=== PATIENT | female | born 1990 | race Caucasian/White ===

== ENCOUNTER 2016-07-01 07:52 | Emergency (ER) | payer OTHER ==
[~2016-07-01] VITALS: Ht 165.1 cm; Wt 113.5 kg
[~2016-07-01 07:52] MED LIST: AMIT25TA9 PO; CARB200 PO; CYCL1TAB29 PO; IBUP800T23 PO; OMEP40CA2 PO
[2016-07-01 07:55] VITALS: BP 120/86; PULSE 110; RESP 18; TEMP 97.6; O2SAT 97
[2016-07-01] MEDS ORDERED: NORC5TAB PO (08:01)
[2016-07-01] MEDS ORDERED: TEGR200T PO (08:01)
[2016-07-01] MEDS ORDERED: BACL10TA PO (08:01)
--- NOTE | 2016-07-01 08:30 | PD ---
HPI Chief Complaint: Injury Time Seen by Provider: 08:30 Travel History International Travel<30 days: No Contact w/Intl Traveler<30days: No Traveled to known affect area: No PFSH Past Medical History Bipolar Disorder: Yes Anxiety: Yes Depression: Yes Cancer: No Cardiovascular Problems: No Diabetes: No Diminished Hearing: No Headaches: No Psychiatric: Yes (Personality Disorder) Seizures: No ?: Unknown LMP: 06/09/16 : 3 Para: 2 Miscarriage: 1 : 0 Dilation and Curettage (D&C): Yes Past Surgical History Section: Yes (X2) Ear Surgery: Yes (TUBES ) Social History Alcohol Use: Yes (OCCASIONAL) Tobacco Use: Yes (LESS THAN 1/2 PPD) Substance Use: Yes (DAILY MARIJUANA) Allergies-Medications (Allergen,Severity, Reaction): Coded Allergies: Mushroom (Unverified Allergy, Severe, Hives, 07/01/16) Reported Meds & Prescriptions Reported Meds & Active Scripts Active Flexeril (Cyclobenzaprine HCl) 10 Mg Tab 10 Mg PO TID Amitriptyline (Amitriptyline HCl) 25 Mg Tab 25 Mg PO HS Ibuprofen 800 Mg Tab 800 Mg PO Q8H PRN Omeprazole 40 Mg Cap 40 Mg PO DAILY Reported Tegretol (Carbamazepine) 200 Mg Tab 200 Mg PO HS Baclofen Unknown Strength Tab Unknown Dose PO TID [place] (Hydrocodone-Acetaminophen) 5-325 mg Tab 1 Tab PO Q6H PRN Data Data Last Documented VS Vital Signs Date Time Temp Pulse Resp B/P Pulse Ox O2 Delivery O2 Flow Rate FiO2 07/01/16 07:55 97.6 110 18 120/86 97 MDM Medical Decision Making Medical Screen Exam Complete: Yes Emergency Medical Condition: Yes Medical Record Reviewed: Yes Dede Rosales Jul 01, 2016 08:30
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
[2016-07-16] MEDS ORDERED: TEGR200T PO (09:38)
[2016-07-16] MEDS ORDERED: OMEP40CA2 PO (09:40)
[2016-08-02] MEDS ORDERED: PERC5TAB12 PO (15:04)
[2016-08-02] MEDS ORDERED: LIDO1PAD52 TOPICAL (15:08)
[2016-09-03] MEDS ORDERED: IBUP800T23 PO (11:27)
[2016-09-03] MEDS ORDERED: CYCL1TAB29 PO (11:28)
== END 2016-07-01 09:01 | disposition left against medical advice (07) ==
LOC: NEPK 07:52
DX: M25.572 Pain in left ankle and joints of left foot (principal); M54.32 Sciatica, left side; F31.9 Bipolar disorder, unspecified; F41.9 Anxiety disorder, unspecified; F60.9 Personality disorder, unspecified; F17.200 Nicotine dependence, unspecified, uncomplicated; F12.10 Cannabis abuse, uncomplicated; Z79.899 Other long term (current) drug therapy
CPT/HCPCS: 99281

== ENCOUNTER 2016-07-07 13:08 | Emergency (ER) | payer MEDICAID, OTHER ==
[~2016-07-07] VITALS: Ht 165.1 cm; Wt 113.6 kg
[~2016-07-07 13:08] MED LIST changes: +BACL10TA PO; +NORC5TAB PO; +TEGR200T PO
[2016-07-07 13:17] VITALS: BP 171/79; PULSE 95; RESP 18; TEMP 98.2; O2SAT 97
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
[2016-07-07] MEDS ORDERED: ORPHENADRINE INJ 60 MG/2 ML AMP IM ONE (13:30)
[2016-07-07] MEDS ORDERED: KETOROLAC TROMETHAMINE 60 MG/2 ML (IM) VIAL IM ONE (13:30)
[2016-07-07] MEDS ORDERED: MEDR4PAK PO (13:50)
[2016-07-07 14:11] VITALS: BP 139/63; PULSE 90; RESP 18; O2SAT 98
[2016-07-16] MEDS ORDERED: TEGR200T PO (09:38)
[2016-07-16] MEDS ORDERED: OMEP40CA2 PO (09:40)
[2016-08-02] MEDS ORDERED: PERC5TAB12 PO (15:04)
[2016-08-02] MEDS ORDERED: LIDO1PAD52 TOPICAL (15:08)
[2016-09-03] MEDS ORDERED: IBUP800T23 PO (11:27)
[2016-09-03] MEDS ORDERED: CYCL1TAB29 PO (11:28)
== END 2016-07-07 14:12 | disposition home or self-care (01) ==
LOC: NEPD 13:08
DX: M54.32 Sciatica, left side (principal); M25.572 Pain in left ankle and joints of left foot; Z87.39 Personal history of other diseases of the musculoskeletal system and connective tissue; Z86.59 Personal history of other mental and behavioral disorders
CPT/HCPCS: 96372; 99283; J1885; J2360

== ENCOUNTER 2016-07-16 17:00 | Emergency (ER) | payer MEDICAID ==
[~2016-07-16 17:00] MED LIST changes: -CARB200 PO; +MEDR4PAK PO
[2016-07-16 17:25] VITALS: BP 126/77; PULSE 94; RESP 16; TEMP 98.2; O2SAT 95
[2016-07-16 17:35] VITALS: BP 134/86; PULSE 102; RESP 20; TEMP 98.5; O2SAT 99
[2016-07-16 19:25] LABS: BACTERIA, URINE FEW /hpf; BLOOD, URINE LARGE (NEG); GLUCOSE,URINE NEG (NEG); HYALINE CAST, URINE 2 /lpf (RARE); KETONE, URINE NEG (NEG); MUCUS URINE MANY /lpf (OCC); NITRITE,URINE NEG (NEG); SQUAMOUS EPITHELIAL CELL URINE 9 /hpf (0-5); URINE COLOR YELLOW (YELLW/STRAW)
[2016-07-16 19:26] LABS: COMMENT (UR) CULTURE INDICATED; CULTURE IF INDICATED CULTURE INDICATED
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
[2016-07-16] MEDS ORDERED: MELO-1 PO (19:37)
[2016-07-16] MEDS ORDERED: PRED50 PO (19:37)
[2016-07-16] MEDS ORDERED: CYCL1TAB29 PO (19:37)
[2016-07-16] MEDS ORDERED: predniSONE 50 MG TAB PO ONE (19:45)
[2016-07-16] MEDS ORDERED: CYCLOBENZAPRINE HCL 10 MG TAB PO ONE (19:45)
[2016-07-16] MEDS ORDERED: NITROFURANTOIN MONOHYD MACROCR 100 MG CAP PO ONE (19:45)
[2016-07-16] MEDS ORDERED: NITR100C4 PO (20:14)
[2016-07-16] MEDS ORDERED: LIDO1PAD52 TOPICAL (20:14)
[2016-07-16] MEDS ORDERED: LIDOCAINE HCL 5% PATCH T-DERMAL ONE (20:15)
[2016-08-02] MEDS ORDERED: PERC5TAB12 PO (15:04)
[2016-08-02] MEDS ORDERED: LIDO1PAD52 TOPICAL (15:08)
[2016-09-03] MEDS ORDERED: IBUP800T23 PO (11:27)
[2016-09-03] MEDS ORDERED: CYCL1TAB29 PO (11:28)
== END 2016-07-16 20:37 | disposition home or self-care (01) ==
LOC: NEPD 17:00
DX: N39.0 Urinary tract infection, site not specified (principal); M54.32 Sciatica, left side; F12.90 Cannabis use, unspecified, uncomplicated; B96.20 Unspecified Escherichia coli [E. coli] as the cause of diseases classified elsewhere
CPT/HCPCS: 81001; 87077; 87086; 87186; 99283; J7512

== ENCOUNTER 2017-01-12 04:33 | Emergency (ER) | payer MEDICAID ==
[~2017-01-12] VITALS: Ht 165.1 cm; Wt 98.0 kg
[~2017-01-12 04:33] MED LIST changes: -BACL10TA PO; -MEDR4PAK PO; -NORC5TAB PO
[2017-01-12 04:35] VITALS: BP 132/79; PULSE 97; RESP 16; TEMP 98; O2SAT 98
[2017-01-12 06:12] LABS: AUTOMATED NEUTROPHIL # 7.6 TH/MM3 (1.8-7.7); BASOPHIL % 0.4 % (0.0-2.0); EOSINOPHIL # 0.3 TH/MM3 (0-0.4); EOSINOPHIL % 2.5 % (0.0-4.0); HEMOGLOBIN 13.2 GM/DL (11.6-15.3); LYMPH % 23.2 % (9.0-44.0); LYMPHOCYTE # 2.6 TH/MM3 (1.0-4.8); MEAN CELL VOLUME 83.7 FL (80.0-100.0); MEAN CORPUSCULAR HGB CONC 34.7 % (32.0-36.0); MEAN PLATELET VOLUME 8.4 FL (7.0-11.0); MONO % 6.6 % (0.0-8.0); MONOCYTE # 0.7 TH/MM3 (0-0.9); NEUT % 67.3 % (16.0-70.0); PLATELET COUNT 360 TH/MM3 (150-450); RED BLOOD COUNT 4.54 MIL/MM3 (4.00-5.30); RED CELL DISTRIBUTION WIDTH 15.2 % (11.6-17.2); WHITE BLOOD COUNT 11.3 TH/MM3 (4.0-11.0)
[2017-01-12 07:01] LABS: ALBUMIN 3.6 GM/DL (3.4-5.0); ALKALINE PHOSPHATASE 124 U/L (45-117); ALT (GPT) 76 U/L (10-53); AST (GOT) 54 U/L (15-37); BICARBONATE 26.4 MEQ/L (21.0-32.0); BLOOD UREA NITROGEN 8 MG/DL (7-18); CALCIUM 9.1 MG/DL (8.5-10.1); CHLORIDE 102 MEQ/L (98-107); CREATININE 0.75 MG/DL (0.50-1.00); GLOMERULAR FILTRATION RATE 92 ML/MIN (>89); GLUCOSE,RANDOM 184 MG/DL (74-106); SODIUM (NA) 137 MEQ/L (136-145); TOTAL BILIRUBIN ADULT 0.5 MG/DL (0.2-1.0)
--- NOTE | 2017-01-12 07:11 | PD ---
HPI Chief Complaint: Psychiatric Symptoms Time Seen by Provider: 04:58 Travel History International Travel<30 days: No Contact w/Intl Traveler<30days: No Traveled to known affect area: No History of Present Illness HPI Patient is a 26-year-old female comes in because she says she wants to kill herself. She says she has no reason to live anymore. She says that a few nights ago she cut herself on her wrists and her neck. She says that she has a lot of stress going on in her life including being homeless and having her child taken away from her therefore she does not want to live anymore. She denies taking any drugs or any medications that she should not have. She says she has been on psychiatric medications in the past, but is not taking them. She denies any medical complaints at this time. PFSH Past Medical History Bipolar Disorder: Yes Anxiety: Yes Depression: Yes Cancer: No Cardiovascular Problems: No Diabetes: No Diminished Hearing: No Headaches: No Psychiatric: Yes (Personality Disorder) Seizures: No Influenza Vaccination: No ?: Unknown LMP: IRREG : 3 Para: 2 Miscarriage: 1 : 0 Dilation and Curettage (D&C): Yes Past Surgical History Section: Yes (X2) Ear Surgery: Yes (TUBES ) Social History Alcohol Use: No Tobacco Use: No Substance Use: No Allergies-Medications (Allergen,Severity, Reaction): Coded Allergies: mushroom (Unverified Allergy, Severe, Hives, 01/12/17) Reported Meds & Prescriptions Reported Meds & Active Scripts Active Amitriptyline (Amitriptyline HCl) 25 Mg Tab 25 Mg PO HS Tegretol (Carbamazepine) 200 Mg Tab 200 Mg PO HS Review of Systems Except as stated in HPI: all other systems reviewed are Neg General / Constitutional: No: Fever, Chills Eyes: No: Blurred Vision HENT: No: Headaches, Lightheadedness Cardiovascular: No: Chest Pain or Discomfort Respiratory: No: Shortness of Breath Gastrointestinal: No: Nausea, Vomiting, Abdominal Pain Genitourinary: No: Dysuria Musculoskeletal: No: Myalgias Skin: No Change in Pigmentation Neurologic: No: Weakness, Dizziness Psychiatric: Positive: Depression, Suicidal Ideations Physical Exam Narrative GENERAL: Awake and alert, in no acute distress. SKIN: Focused skin assessment warm/dry. Very superficial cuts on her right forearm as well as the base of her neck. These are already healing. There are no signs of infection. HEAD: Atraumatic. Normocephalic. EYES: Pupils equal and round. No scleral icterus. Extraocular movements intact. ENT: Mucous membranes pink and moist. NECK: Trachea midline. No JVD. CARDIOVASCULAR: Regular rate and rhythm. No murmur appreciated. RESPIRATORY: No accessory muscle use. Clear to auscultation. Breath sounds equal bilaterally. GASTROINTESTINAL: Abdomen soft, non-tender, nondistended. MUSCULOSKELETAL: No obvious deformities. No clubbing. No cyanosis. No edema. NEUROLOGICAL: Awake and alert. No obvious cranial nerve deficits. Motor grossly within normal limits. Normal speech. Data Data Last Documented VS Vital Signs Date Time Temp Pulse Resp B/P (MAP) Pulse Ox O2 Delivery O2 Flow Rate FiO2 01/12/17 04:35 98.0 97 16 132/79 (96) 98 Room Air Orders Orders Complete Blood Count With Diff (01/12/17 05:50) Comprehensive Metabolic Panel (01/12/17 05:50) Ed Urine Pregnancytest Poc (01/12/17 05:50) Psych Screen (01/12/17 05:50) Drug Screen, Random Urine (01/12/17 05:50) Alcohol (Ethanol) (01/12/17 05:50) Salicylates (Aspirin) (01/12/17 05:50) Tylenol (Acetaminophen) (01/12/17 05:50) Potassium Chloride (Kcl) (01/12/17 07:15) Labs Laboratory Tests Test 01/12/17 05:53 White Blood Count 11.3 TH/MM3 Red Blood Count 4.54 MIL/MM3 Hemoglobin 13.2 GM/DL Hematocrit 38.0 % Mean Corpuscular Volume 83.7 FL Mean Corpuscular Hemoglobin 29.0 PG Mean Corpuscular Hemoglobin Concent 34.7 % Red Cell Distribution Width 15.2 % Platelet Count 360 TH/MM3 Mean Platelet Volume 8.4 FL Neutrophils (%) (Auto) 67.3 % Lymphocytes (%) (Auto) 23.2 % Monocytes (%) (Auto) 6.6 % Eosinophils (%) (Auto) 2.5 % Basophils (%) (Auto) 0.4 % Neutrophils # (Auto) 7.6 TH/MM3 Lymphocytes # (Auto) 2.6 TH/MM3 Monocytes # (Auto) 0.7 TH/MM3 Eosinophils # (Auto) 0.3 TH/MM3 Basophils # (Auto) 0.0 TH/MM3 CBC Comment DIFF FINAL Differential Comment Blood Urea Nitrogen 8 MG/DL Creatinine 0.75 MG/DL Random Glucose 184 MG/DL Total Protein 8.0 GM/DL Albumin 3.6 GM/DL Calcium Level 9.1 MG/DL Alkaline Phosphatase 124 U/L Aspartate Amino Transf (AST/SGOT) 54 U/L Alanine Aminotransferase (ALT/SGPT) 76 U/L Total Bilirubin 0.5 MG/DL Sodium Level 137 MEQ/L Potassium Level 2.9 MEQ/L Chloride Level 102 MEQ/L Carbon Dioxide Level 26.4 MEQ/L Anion Gap 9 MEQ/L Estimat Glomerular Filtration Rate 92 ML/MIN Salicylates Level LESS THAN 1.7 MG/DL Urine Opiates Screen NEG Acetaminophen Level LESS THAN 2.0 MCG/ML Urine Barbiturates Screen NEG Urine Amphetamines Screen POS Urine Benzodiazepines Screen POS Urine Cocaine Screen NEG Urine Cannabinoids Screen POS Ethyl Alcohol Level LESS THAN 3 MG/DL MDM Medical Decision Making Medical Screen Exam Complete: Yes Emergency Medical Condition: Yes Medical Record Reviewed: Yes Differential Diagnosis Intoxication versus psychosis versus depression Narrative Course Patient is a 26-year-old female who comes in because she says she wants to kill herself. Exam shows very superficial lacerations. Labs sent Potassium of 2.9, this was replaced. Tox screen is positive for amphetamines, benzos, marijuana. Patient will be medically cleared for psychiatric evaluation. Diagnosis Primary Impression: Medical clearance for psychiatric admission Condition: Stable Kasey Blevins MD Jan 12, 2017 07:11
[2017-01-12 07:12] LABS: ACETAMINOPHEN LESS THAN 2.0 MCG/ML (10.0-30.0)
[2017-01-12] MEDS ORDERED: POTASSIUM CHLORIDE 10 MEQ CONTROLLED RELEASE TAB PO ONE (07:15)
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
== END 2017-01-12 15:17 | disposition home or self-care (01) ==
LOC: NEPE 04:33
DX: R45.851 Suicidal ideations (principal); F31.9 Bipolar disorder, unspecified; Z79.899 Other long term (current) drug therapy
CPT/HCPCS: 80053; 80307; 84703; 85025; 99284

== ENCOUNTER 2017-02-17 14:56 | Emergency (ER) | payer MEDICAID ==
[~2017-02-17] VITALS: Ht 165.1 cm; Wt 85.0 kg
[~2017-02-17 14:56] MED LIST changes: -CYCL1TAB29 PO; -IBUP800T23 PO; -OMEP40CA2 PO
[2017-02-17 15:06] VITALS: BP 124/62; PULSE 88; RESP 16; TEMP 98.1; O2SAT 99
[2017-02-18] MEDS ORDERED: AMOX500T PO (13:14)
== END 2017-02-17 16:00 | disposition left against medical advice (07) ==
LOC: NED 14:56
DX: Z03.89 Encounter for observation for other suspected diseases and conditions ruled out (principal)
CPT/HCPCS: 99281

== ENCOUNTER 2017-02-18 10:37 | Emergency (ER) | payer MEDICAID ==
[~2017-02-18] VITALS: Ht 165.1 cm; Wt 94.8 kg
[2017-02-18 10:49] VITALS: BP 147/73; PULSE 104; RESP 18; TEMP 97.1; O2SAT 99
--- NOTE | 2017-02-18 11:17 | PD ---
HPI Chief Complaint: ENT Complaint Time Seen by Provider: 11:10 Travel History International Travel<30 days: No Contact w/Intl Traveler<30days: No Traveled to known affect area: No History of Present Illness HPI This 26-year-old female is complaining of sore throat. She's had a sore throat for a couple of days. She says that today it is quite bad and she has trouble swallowing. She is not sure about fever. She is also had frequency of urination. There has not been any vomiting. She says that both of her ears are hurting PFSH Past Medical History Bipolar Disorder: Yes Anxiety: Yes Depression: Yes Cancer: No Cardiovascular Problems: No Diabetes: No Diminished Hearing: No Headaches: No Psychiatric: Yes (Personality Disorder) Seizures: No ?: Not LMP: 01/23/17 : 3 Para: 2 Miscarriage: 1 : 0 Dilation and Curettage (D&C): Yes Past Surgical History Section: Yes (X2) Ear Surgery: Yes (TUBES ) Social History Alcohol Use: No Tobacco Use: No Substance Use: No Allergies-Medications (Allergen,Severity, Reaction): Coded Allergies: mushroom (Unverified Allergy, Severe, Hives, 02/18/17) Reported Meds & Prescriptions Reported Meds & Active Scripts Active No Active Prescriptions or Reported Medications Review of Systems General / Constitutional: Positive: Chills, No: Fever Eyes: No: Diploplia, Blurred Vision HENT: Positive: Sore Throat, Earache Cardiovascular: No: Chest Pain or Discomfort, Palpitations Respiratory: No: Cough, Shortness of Breath Gastrointestinal: Positive: Dysphagia, No: Vomiting Genitourinary: Positive: Frequency Musculoskeletal: No: Myalgias Skin: No Rash Hematologic/Lymphatic: No: Easy Bruising Physical Exam Narrative GENERAL: Well-developed female SKIN: Focused skin assessment warm/dry. HEAD: Atraumatic. Normocephalic. EYES: Pupils equal and round. No scleral icterus. No injection or drainage. ENT: No nasal bleeding or discharge. Mucous membranes pink and moist. Tonsils are quite enlarged with large amount of white exudate. There is bilateral anterior cervical adenopathy NECK: Trachea midline. No JVD. CARDIOVASCULAR: Regular rate and rhythm. No murmur appreciated. RESPIRATORY: No accessory muscle use. Clear to auscultation. Breath sounds equal bilaterally. GASTROINTESTINAL: Abdomen soft, non-tender, nondistended. Hepatic and splenic margins not palpable. MUSCULOSKELETAL: No obvious deformities. No clubbing. No cyanosis. No edema. NEUROLOGICAL: Awake and alert. No obvious cranial nerve deficits. Motor grossly within normal limits. Normal speech. PSYCHIATRIC: Appropriate mood and affect; insight and judgment normal. Data Data Last Documented VS Vital Signs Date Time Temp Pulse Resp B/P (MAP) Pulse Ox O2 Delivery O2 Flow Rate FiO2 02/18/17 10:49 97.1 104 18 147/73 (97) 99 Orders Orders Complete Blood Count With Diff (02/18/17 11:14) Basic Metabolic Panel (Bmp) (02/18/17 11:14) Urinalysis - C+S If Indicated (02/18/17 11:14) Group A Rapid Strep Screen (02/18/17 11:14) Monoscreen (02/18/17 11:14) Sodium Chlor 0.9% 1000 Ml Inj (Ns 1000 M (02/18/17 11:30) Dexamethasone Inj (Decadron Inj) (02/18/17 11:30) Ketorolac Inj (Toradol Inj) (02/18/17 11:30) Urine Culture (02/18/17 11:25) Ceftriaxone Inj (Rocephin Inj) (02/18/17 12:00) Labs Laboratory Tests Test 02/18/17 11:25 White Blood Count 15.5 TH/MM3 Red Blood Count 4.80 MIL/MM3 Hemoglobin 13.3 GM/DL Hematocrit 39.9 % Mean Corpuscular Volume 83.0 FL Mean Corpuscular Hemoglobin 27.7 PG Mean Corpuscular Hemoglobin Concent 33.4 % Red Cell Distribution Width 13.4 % Platelet Count 299 TH/MM3 Mean Platelet Volume 8.4 FL Neutrophils (%) (Auto) 79.9 % Lymphocytes (%) (Auto) 14.5 % Monocytes (%) (Auto) 4.1 % Eosinophils (%) (Auto) 1.3 % Basophils (%) (Auto) 0.2 % Neutrophils # (Auto) 12.5 TH/MM3 Lymphocytes # (Auto) 2.2 TH/MM3 Monocytes # (Auto) 0.6 TH/MM3 Eosinophils # (Auto) 0.2 TH/MM3 Basophils # (Auto) 0.0 TH/MM3 CBC Comment DIFF FINAL Differential Comment Urine Collection Type VOIDED Urine Color YELLOW Urine Turbidity SLIGHT Urine pH 6.0 Urine Specific [place] 1.014 Urine Protein NEG mg/dL Urine Glucose (UA) NEG mg/dL Urine Ketones NEG mg/dL Urine Occult Blood NEG Urine Nitrite NEG Urine Bilirubin NEG Urine Leukocyte Esterase NEG Urine WBC 3-5 /hpf Urine Squamous Epithelial Cells >8 /hpf Urine Bacteria MOD /hpf Urine Mucus FEW /lpf Microscopic Urinalysis Comment CULTURE INDICATED Blood Urea Nitrogen 6 MG/DL Creatinine 0.67 MG/DL Random Glucose 118 MG/DL Calcium Level 8.8 MG/DL Sodium Level 136 MEQ/L Potassium Level 3.6 MEQ/L Chloride Level 101 MEQ/L Carbon Dioxide Level 28.2 MEQ/L Anion Gap 7 MEQ/L Estimat Glomerular Filtration Rate 105 ML/MIN [facility] Medical Decision Making Medical Screen Exam Complete: Yes Emergency Medical Condition: Yes Medical Record Reviewed: Yes Differential Diagnosis Differential includes tonsillitis, strep throat, mononucleosis, UTI Narrative Course Test for strep is positive. Patient has been given IV fluids, a single dose of Decadron an initial dose of Rocephin. She'll be released with prescription for amoxicillin Diagnosis Primary Impression: Strep throat Scripts Amoxicillin (Amoxicillin) 500 Mg Tab 500 MG PO TID for Infection, #30 TAB 0 Refills Prov: Ozzy Rose MD 02/18/17 Disposition: 01 DISCHARGE HOME Condition: Stable Ozzy Rose MD Feb 18, 2017 11:17
[2017-02-18] MEDS ORDERED: SODIUM CHLOR 0.9% 1000 ML INJ 1,000 ML IV ONE (11:30)
[2017-02-18] MEDS ORDERED: KETOROLAC TROMETHAMINE 30 MG/ML (IVP) VIAL IV PUSH ONE (11:30)
[2017-02-18] MEDS ORDERED: DEXAMETHASONE SOD PHOS 4 MG/ML VIAL IV PUSH ONE (11:30)
[2017-02-18 11:43] LABS: BLOOD, URINE NEG (NEG); GLUCOSE,URINE NEG (NEG); KETONE, URINE NEG (NEG); NITRITE,URINE NEG (NEG); POTASSIUM 3.6 MEQ/L (3.5-5.1)
[2017-02-18 11:44] LABS: AUTOMATED NEUTROPHIL # 12.5 TH/MM3 (1.8-7.7); BASOPHIL % 0.2 % (0.0-2.0); EOSINOPHIL # 0.2 TH/MM3 (0-0.4); EOSINOPHIL % 1.3 % (0.0-4.0); HEMATOCRIT 39.9 % (35.0-46.0); HEMO FLAGS DIFF FINAL; LYMPH % 14.5 % (9.0-44.0); LYMPHOCYTE # 2.2 TH/MM3 (1.0-4.8); MEAN CORPUSCULAR HEMOGLOBIN 27.7 PG (27.0-34.0); MEAN CORPUSCULAR HGB CONC 33.4 % (32.0-36.0); MONO % 4.1 % (0.0-8.0); NEUT % 79.9 % (16.0-70.0); PLATELET COUNT 299 TH/MM3 (150-450); RED CELL DISTRIBUTION WIDTH 13.4 % (11.6-17.2); WHITE BLOOD COUNT 15.5 TH/MM3 (4.0-11.0)
[2017-02-18 11:46] LABS: BICARBONATE 28.2 MEQ/L (21.0-32.0)
[2017-02-18 11:50] LABS: METHOD OF COLLECTION VOIDED; URINE COLOR YELLOW (YELLW/STRAW)
[2017-02-18 11:51] LABS: SQUAMOUS EPITHELIAL CELL URINE >8 /hpf (0-5)
[2017-02-18 11:52] LABS: BACTERIA, URINE MOD /hpf; COMMENT (UR) CULTURE INDICATED; CULTURE IF INDICATED CULTURE INDICATED; MUCUS URINE FEW /lpf (OCC)
[2017-02-18] MEDS ORDERED: cefTRIAXone INJ 1,000 MG in SODIUM CHLORIDE 0.9% INJ 100 ML IV ONE (12:00)
[2017-02-18] MEDS ORDERED: AMOX500T PO (13:14)
== END 2017-02-18 13:24 | disposition home or self-care (01) ==
LOC: PHED 10:37
DX: J02.0 Streptococcal pharyngitis (principal); R35.0 Frequency of micturition; H92.03 Otalgia, bilateral; B96.20 Unspecified Escherichia coli [E. coli] as the cause of diseases classified elsewhere; Z86.59 Personal history of other mental and behavioral disorders
CPT/HCPCS: 80048; 81001; 85025; 86308; 87077; 87086; 87186; 87880; 96365; 96375; 99284; J0696; J1100; J1885; J7030